=== PATIENT | female | born 1955 | race Caucasian/White ===

== ENCOUNTER → 2022-11-19 10:05 | Outpatient (CLI) | payer MEDICARE, BC, SELFPAY ==
[2022-11-19 13:51] LABS: COVID19 -Nasal RAPID Negative (Negative)
== END ==
PROVIDERS: PCP Nurse Practitioner; Visit Provider Surgery
DX: Z01.812 Encounter for preprocedural laboratory examination (principal); Z20.822 Contact with and (suspected) exposure to COVID-19
CPT/HCPCS: 87635; C9803

== ENCOUNTER 2022-11-22 14:05 | Day surgery (SDC) | payer MEDICARE, BC, SELFPAY ==
[2022-11-22] VITALS (8 sets, daily range): BP systolic 79–143; BP diastolic 47–73; PULSE 59–92; RESP 8–17; TEMP 36.2–36.6; O2SAT 98–100; BMI 24.6
[2022-11-22] MEDS: LACTATED RINGERS 1,000 ML 100 ML IV (14:38)
--- NOTE | 2022-11-22 15:40 | PM.HP.1 ---
History of Present Illness History of Present Illness Date Patient Seen: 11/22/22 Time Patient Seen: 15:41 Chief complaint: EGD Narrative: I reviewed my recent office note. No significant changes. History of esophageal ulcer. Patient History Family & Social History Social History: household members spouse Tobacco & Substance use: Smoking Status Former smoker alcohol intake former Substance Use Type does not use Meds Home Medications and Allergies Home Medications Medication Instructions Recorded Confirmed Type amlodipine 5 mg-benazepril 10 mg 5 - 10 cap PO DAILY 11/22/22 11/22/22 History capsule levothyroxine 75 mcg tablet 75 mcg PO DAILY 11/22/22 11/22/22 History pantoprazole 40 mg tablet,delayed 40 mg PO DAILY 11/22/22 11/22/22 History release Allergies Allergy/AdvReac Type Severity Reaction Status Date / Time No Known Drug Allergies Allergy Verified 11/22/22 14:31 Review of Systems Review of Systems ROS: Yes All systems reviewed with the patient and are negative except as otherwise documented Exam Vital Signs (past 8 hours): - 11/22/22 14:39 Temperature 97.8 F Pulse Rate 92 H Respiratory Rate 16 Blood Pressure 143/73 H Pulse Oximetry 98 Oxygen Delivery Method Room Air Oxygen Delivery Method Room Air Const General: cooperative HENMT Head: normal to inspection Eyes General: appearance normal, both eyes and all related structures Neck Neck: normal visual inspection Chest Chest: normal inspection of the chest Resp Effort & Inspection: normal respiratory effort Cardio Rate: regular rate GI Inspection: normal to inspection Skin General: no rashes or lesions noted Neuro General: patient alert and patient awake Extrem General: normal to inspection and no pedal edema Psych Appearance: grossly normal Assessment & Plan Assessment & Plan narrative: 67-year-old female with possible cirrhosis and a history of esophagitis/esophageal ulcer. She remains on PPI and is here for surveillance EGD. Time Spent With Patient Critical Care time: I spent a total of [] minutes of critical care time on this patient's care today; this time is exclusive of procedural time.
--- NOTE | 2022-11-22 15:42 | PM.PREOP ---
Pre-operative Note COVID-19 COVID-19 status: Negative Result date/Date tested (Pos, Neg/Pending): 11/19/22 Criteria for continued procedure: Possibility delay results in more complex future surgery or treatment Interval Note History & Physical reviewed/Exam performed by Physician: Yes Changes to H&P: No ASA Class (for procedural sedation): II
--- NOTE | 2022-11-22 15:56 | PM.OP.EGD ---
Operative Date/Time/Diagnoses Date of procedure: 11/22/22 Time of procedure: 15:56 Pre-op diagnosis: History of esophageal ulceration and GERD. History of possible cirrhosis. Post-op diagnosis: same Procedure & Clinicians Study performed: EGD Same procedure as scheduled: Yes Indications: History of esophageal ulceration and GERD. History of possible cirrhosis. Surgeon: Alhaji Ardon Procedure Notes SCOAP/Timeout: Done Procedure in detail: After the risks and benefits were explained, written and verbal informed consent was obtained. The patient was brought into the procedure room and placed into the left lateral decubitus position. Please see anesthesia notes for sedation details. The scope was introduced into the mouth through the bite block and advanced under direct visualization to the 2nd portion of the duodenum. The scope was slowly withdrawn carefully examining the mucosa for any defects or lesions. Retroflexed views were accomplished in the stomach. The stomach was decompressed, the scope was then removed from the patient who tolerated the procedure well. Sedation minutes: 6 Specimen(s): none sent Complications: none Impression: 1. Duodenum: This was normal from the bulb through to the 2nd portion. 2. Stomach: No evidence of mass lesion ulceration or outlet obstruction. Retroflexed views of the LES disclosed probable Mor's erosions mild. No varices. There were a few very diminutive benign-appearing polyps. I did not repeat biopsies as these were sampled in June and determined to be fundic gland polyps. 3. Esophagus: The squamocolumnar junction correlated with the top of the gastric folds. GE junction was at about 31 cm from the incisors. There was no evidence of any ulceration nor esophagitis. Sliding hiatal hernia was evident. In the distal esophagus I could appreciate grade 1 varices which fully flattened out with air insufflation. See photographs. Endoscopic diagnosis 1. Healed esophagitis 2. Diminutive gastric polyps 3. Hiatal hernia 4. Probable Mor's erosions 5. Very small distal esophageal varices Post-procedure Plan for aftercare: 1. Continue anti-reflux therapy. 2. Repeat EGD for surveillance 1 year. Disposition: PACU
== END 2022-11-22 16:49 | disposition home or self-care (01) ==
PROVIDERS: PCP Nurse Practitioner; Referring Provider Internal Medicine Gastroenterology; Visit Provider Internal Medicine Gastroenterology
PROC: 0DJ08ZZ Inspection of Upper Intestinal Tract, Via Natural or Artificial Opening Endoscopic (ICD-10-PCS; CPT 43235; principal; 2022-11-22 15:30)
DX: K21.9 Gastro-esophageal reflux disease without esophagitis (principal); Z09 Encounter for follow-up examination after completed treatment for conditions other than malignant neoplasm; Z87.19 Personal history of other diseases of the digestive system; I85.00 Esophageal varices without bleeding; K46.9 Unspecified abdominal hernia without obstruction or gangrene
CPT/HCPCS: 43235

== ENCOUNTER 2024-02-27 08:06 | Day surgery (SDC) | payer MEDICARE, SELFPAY ==
[2024-02-27 08:35] VITALS: BP 148/78; PULSE 73; RESP 16; TEMP 36.4; O2SAT 98
--- NOTE | 2024-02-27 08:37 | P.HP_ITS ---
History of Present Illness History of Present Illness Date Patient Seen: 02/27/24 Time Patient Seen: 08:37 Chief complaint: EGD Narrative: History of hepatic steatosis. No obvious cirrhosis. Refractory reflux despite 20 mg omeprazole daily in the morning. She is here for upper endoscopy. [facility] Medical History History of esophageal reflux History of hypothyroidism History of hypertension Social History household members: spouse Smoking Status: Former smoker alcohol intake: former Meds Home Medications and Allergies Home Medications Medication Instructions Recorded Confirmed Type amlodipine 5 mg-benazepril 10 mg 5 - 10 cap PO DAILY 11/22/22 02/27/24 History capsule (Lotrel) levothyroxine 88 mcg tablet 88 mcg PO DAILY 02/27/24 02/27/24 History omeprazole 20 mg PO DAILY 02/27/24 02/27/24 History pravastatin 20 mg tablet 20 mg PO DAILY 02/27/24 02/27/24 History sertraline 50 mg tablet 50 mg PO DAILY 02/27/24 02/27/24 History Allergies Allergy/AdvReac Type Severity Reaction Status Date / Time oxycodone AdvReac Vomiting Verified 02/27/24 08:25 Review of Systems Review of Systems ROS: Yes All systems reviewed with the patient and are negative except as otherwise documented Exam Vital Signs (past 8 hours): - 02/27/24 08:35 Temperature 97.6 F Pulse Rate 73 Respiratory Rate 16 Blood Pressure 148/78 H Pulse Oximetry 98 Oxygen Delivery Method Room Air Oxygen Delivery Method Room Air Const General: cooperative HENMT Head: normal to inspection Eyes General: appearance normal, both eyes and all related structures Neck Neck: normal visual inspection Chest Chest: normal inspection of the chest Resp Effort & Inspection: normal respiratory effort Cardio Rate: regular rate GI Inspection: normal to inspection Skin General: no rashes or lesions noted Neuro General: patient alert and patient awake Extrem General: normal to inspection and no pedal edema Psych Appearance: grossly normal Assessment & Plan Assessment & Plan narrative: 68-year-old female with hepatic steatosis and chronic refractory reflux. Most of her symptoms seemed to occur at night. Updated EGD is pursued.
--- NOTE | 2024-02-27 08:42 | PM.PREOP ---
Pre-operative Note Interval Note History & Physical reviewed/Exam performed by Physician: Yes Changes to H&P: Yes ASA Class (for procedural sedation): II
--- NOTE | 2024-02-27 09:27 | P.OP.EGD_ITS ---
Operative Date/Time/Diagnoses Date of procedure: 02/27/24 Time of procedure: 09:28 Pre-op diagnosis: Refractory GERD and history of possible small esophageal varices Post-op diagnosis: same Procedure & Clinicians Study performed: EGD Same procedure as scheduled: Yes Indications: Refractory GERD and history of possible small esophageal varices Surgeon: Alhaji Ardon Procedure Notes SCOAP/Timeout: Done Procedure in detail: After the risks and benefits were explained, written and verbal informed consent was obtained. The patient was brought into the procedure room and placed into the left lateral decubitus position. Please see anesthesia notes for sedation details. The scope was introduced into the mouth through the bite block and advanced under direct visualization to the 2nd portion of the duodenum. The sc ope was slowly withdrawn carefully examining the mucosa for any defects or lesions. Retroflexed views were accomplished in the stomach. The stomach was decompressed, the scope was then removed from the patient who tolerated the procedure well. Sedation minutes: 5 Specimen(s): none sent Complications: none Impression: 1. Duodenum: No gross lesions from the bulb through to the 2nd portion. 2. Stomach: No ulcers mass lesions or outlet obstruction identified. No gross lesions throughout. Retroflexed views disclosed hiatal hernia with a Hill grade 3 valve. 3. Esophagus: The squamocolumnar junction correlated nicely with the top of the gastric folds. The GEJ was at roughly 32 cm from the incisors. Sliding hiatal hernia was noted. There was absolutely no esophagitis whatsoever. No strictures no mass lesions. The esophagus was also devoid of any evidence of varices. Endoscopic diagnosis 1. Small sliding hiatal hernia 2. No varices Post-procedure Plan for aftercare: 1. Continue anti-reflux therapy. In that symptoms seemed to occur at night quite frequently, I recommend a trial of using the omeprazole 30-60 minutes before the last meal of the day. 2. In the absence of obvious hepatic fibrosis and varices, surveillance EGD does not appear to be indicated at this time. Disposition: PACU
[2024-02-27 09:32] VITALS: BP 107/52; PULSE 58; RESP 17; TEMP 36.3; O2SAT 99
[2024-02-27 09:37] VITALS: BP 110/56; PULSE 59; RESP 12; O2SAT 99
[2024-02-27 09:42] VITALS: BP 111/56; PULSE 62; RESP 12; O2SAT 97
== END 2024-02-27 10:00 | disposition home or self-care (01) ==
PROVIDERS: PCP Nurse Practitioner; Referring Provider Internal Medicine Gastroenterology; Visit Provider Internal Medicine Gastroenterology
PROC: 0DJ08ZZ Inspection of Upper Intestinal Tract, Via Natural or Artificial Opening Endoscopic (ICD-10-PCS; CPT 43235; principal; 2024-02-27 09:00)
DX: K21.9 Gastro-esophageal reflux disease without esophagitis (principal); K44.9 Diaphragmatic hernia without obstruction or gangrene
CPT/HCPCS: 43235; J2704